=== PATIENT | female | born 1980 | race Caucasian/White ===

== ENCOUNTER 2018-03-17 05:32 | Inpatient (IN) | payer OTHER ==
[2018-03-17] MEDS: LACTATED RINGER'S 1,000 ML IV* (06:45)
[2018-03-17] MEDS: CEFAZOLIN 2 GM/50 ML (PMX) 50 ML IVPB (06:45)
[2018-03-17] MEDS ORDERED: IPRATROPIUM (NEB) 0.5 MG/2.5 ML AMP HHN (07:00)
[2018-03-17] MEDS ORDERED: ONDANSETRON 4 MG INJ IV (07:00)
[2018-03-17] MEDS ORDERED: DEXAMETHASONE 4 MG/ML 1 ML INJ (07:00)
[2018-03-17] MEDS ORDERED: FENTAnyl 50 MCG/ML VIAL IV (07:00)
[2018-03-17] MEDS ORDERED: LABETALOL HCL 20MG INJ IV (07:00)
[2018-03-17] MEDS ORDERED: HYDROmorphONE 1 MG/5 ML IV SYRINGE IV ×3 (07:00)
[2018-03-17] MEDS ORDERED: hydrALAzine 20 MG INJ IV (07:00)
[2018-03-17] MEDS ORDERED: ONDANSETRON 4 MG INJ (07:00)
[2018-03-17] MEDS ORDERED: LEVALBUTEROL (NEB) 1.25 MG/0.5 ML AMP HHN (07:00)
[2018-03-17] MEDS ORDERED: PROPOFOL 20 ML (07:04)
[2018-03-17] MEDS ORDERED: SUCCINYLCHOLINE CHLORIDE 100 MG/5 ML SYG IV ×2 (07:04)
[2018-03-17] MEDS ORDERED: MIDAZOLAM 1 MG/ML 2 ML INJ (07:04)
[2018-03-17] MEDS ORDERED: ROCURONIUM 50 MG INJ (07:04)
[2018-03-17] MEDS ORDERED: FENTAnyl 50 MCG/ML VIAL (07:04)
[2018-03-17] MEDS ORDERED: SUGAMMADEX SODIUM 200 MG/2 ML VIAL IV (07:05)
[2018-03-17] MEDS ORDERED: METOCLOPRAMIDE 10 MG INJ (07:07)
[2018-03-17] MEDS ORDERED: PHENYLephrine (100 MCG/ML) 5ML SYG (07:32)
[2018-03-17] MEDS ORDERED: HYDROmorphONE 2 MG/ML SYG (07:48)
[2018-03-17] MEDS: POLYMYXIN/BACITRACIN 1L IRRIG (08:22)
[2018-03-17] MEDS: BUPIVACAINE 0.25% (MPF) 30 ML INJ (08:23)
[2018-03-17] MEDS: THROMBIN 5000 UNIT VIAL (08:50)
[2018-03-17] MEDS: GELATIN SIZE 100 SPONGE (08:50)
[2018-03-17] MEDS: FENTAnyl 50 MCG/ML VIAL IV ×2 (09:31→09:39)
[2018-03-17] MEDS: DIPHENHYDRAMINE 50 MG INJ IV (09:48)
[2018-03-17] MEDS ORDERED: ZOLPIDEM 5 MG TAB PO (10:00)
[2018-03-17] MEDS ORDERED: DIAZEPAM 5 MG TAB PO (10:00)
[2018-03-17] MEDS ORDERED: NALOXONE (0.4 MG/ML) INJ IV (10:00)
[2018-03-17] MEDS ORDERED: TRIMETHOBENZAMIDE 100 MG/ML VIAL IM (10:00)
[2018-03-17] MEDS ORDERED: DIAZEPAM 5 MG/ML SYG IM (10:00)
[2018-03-17] MEDS ORDERED: NACL 0.9% 3 ML SYG IV (10:00)
[2018-03-17] MEDS ORDERED: HYDROCODONE/APAP (5/325) TAB PO ×2 (10:00)
[2018-03-17] MEDS ORDERED: AL HYDROX/MG HYDROX/SIMETH 30 ML CUP PO (10:00)
[2018-03-17] MEDS: HYDROmorphONE 0.2 MG/ML PCA IV ×2 (10:03→20:24)
[2018-03-17] MEDS: MEPERIDINE 25 MG INJ IV (10:09)
[2018-03-17] MEDS: DEXTROSE 5%-0.45% NACL 1,000 ML IV ×2 (12:27→23:46)
[2018-03-17] MEDS: CEFAZOLIN 1 GM/50 ML (PMX) 50 ML IVPB ×3 (12:27→23:45)
[2018-03-17] MEDS: CEPASTAT LOZENGE MT ×2 (15:36→23:51)
[2018-03-17] MEDS: RANITIDINE 150 MG TAB PO (20:05)
[2018-03-17] MEDS: ACETAMINOPHEN 325 MG TAB PO (23:50)
[2018-03-18] MEDS: DIPHENHYDRAMINE 50 MG CAP PO (04:13)
[2018-03-18] MEDS: LACTATED RINGER'S 1,000 ML IV* (05:00)
[2018-03-18 05:12] LABS: HEMATOCRIT 34.4 % (37.0-47.0); HEMOGLOBIN 11.4 g/dl (12.0-16.0)
[2018-03-18 05:31] LABS: ANION GAP 6 (5-13); BLOOD UREA NITROGEN 17 mg/dl (7-20); CALCIUM 8.6 mg/dl (8.4-10.2); CARBON DIOXIDE 25 mmol/L (21-31); CHLORIDE 106 mmol/L (97-110); CREATININE 0.61 mg/dl (0.44-1.00); Estimated GFR > 60 mL/min (>60); GLUCOSE 110 mg/dl (70-220); POTASSIUM 3.7 mmol/L (3.5-5.1); SODIUM 137 mmol/L (135-144)
[2018-03-18] MEDS: CEFAZOLIN 1 GM/50 ML (PMX) 50 ML IVPB (06:26)
[2018-03-18] MEDS ORDERED: BETHANECHOL 25 MG TAB PO (08:00)
[2018-03-18] MEDS: DOCUSATE SODIUM 100 MG CAP PO (09:27)
[2018-03-18] MEDS: FERROUS SULFATE (EC) 325 MG TAB PO ×2 (09:28→13:41)
[2018-03-18] MEDS: BETHANECHOL 25 MG TAB PO (09:28)
[2018-03-18] MEDS: ASCORBIC ACID 500 MG TAB PO (09:28)
[2018-03-18] MEDS: RANITIDINE 150 MG TAB PO (09:28)
[2018-03-18] MEDS: traMADol 50 MG TAB PO ×2 (09:43→15:39)
[2018-03-18] MEDS: ACETAMINOPHEN 325 MG TAB PO ×2 (09:45→13:41)
[2018-03-18 10:27] LABS: ADD UMIC YES; UR ASCORBIC ACID NEGATIVE (NEGATIVE); UR BILIRUBIN (Dip) NEGATIVE (NEGATIVE); UR BLOOD (Dip) 1+ mg/dL (NEGATIVE); UR CLARITY CLEAR (CLEAR); UR COLOR YELLOW (YELLOW); UR GLUCOSE (Dip) NEGATIVE (NEGATIVE); UR KETONES (Dip) NEGATIVE (NEGATIVE); UR LEUKOCYTE ESTERASE (Dip) NEGATIVE Leu/ul (NEGATIVE); UR MUCUS FEW /HPF (NONE SEEN); UR NITRITE (Dip) NEGATIVE (NEGATIVE); UR RBC 2 /HPF (0-5); UR SPECIFIC GRAVITY (Dip) 1.018 (1.003-1.030); UR TOTAL PROTEIN (Dip) NEGATIVE (NEGATIVE); UR UROBILINOGEN (Dip) NEGATIVE (NEGATIVE); UR WBC 1 /HPF (0-5)
[2018-03-18] MEDS: ONDANSETRON 4 MG INJ IV (10:48)
[2018-03-18] MEDS: PROCHLORPERAZINE 10 MG TAB PO (13:41)
== END 2018-03-18 18:49 | disposition home or self-care (01) | DRG 520 ==
LOC: REC 05:32 → MS1 11:15
PROC: 0SB20ZZ Excision of Lumbar Vertebral Disc, Open Approach (ICD-10-PCS; principal; 2018-03-17 07:00)
PROC: 0SB40ZZ Excision of Lumbosacral Disc, Open Approach (ICD-10-PCS; 2018-03-17 07:00)
PROC: 4A11X4G Monitoring of Peripheral Nervous Electrical Activity, Intraoperative, External Approach (ICD-10-PCS; 2018-03-17 07:00)
DX: M51.16 Intervertebral disc disorders with radiculopathy, lumbar region (principal); M51.27 Other intervertebral disc displacement, lumbosacral region; F90.9 Attention-deficit hyperactivity disorder, unspecified type; R51 Headache
CPT/HCPCS: 72020; 80048; 81001; 85014; 85018; 86850; 86900; 86901; 86920; 88304; 97116; 97161; 97530